=== PATIENT | male | born 1985 | race Caucasian/White ===

== ENCOUNTER → 2017-04-02 | Outpatient (CLI) | payer OTHER ==
--- NOTE | 2017-04-02 10:00 | KCIC ---
MR of the left pectoralis major muscle. HISTORY: Pain at the pectoralis major insertion after an injury 6 or 7 weeks ago. TECHNIQUE: Routine multiplanar sequences are obtained orthogonal to the left pectoralis muscles. FINDINGS: There is a high-grade tear of the pectoralis major tendon from the humeral attachment. There is at least 2 cm of retraction suspected. Mild edema at the myotendinous junction. No evidence of intramuscular tear or hematoma. There is no evidence of a bone lesion. No acute fracture. IMPRESSION: Findings are compatible with a high-grade tear of the pectoralis major tendon from its humeral insertion with mild retraction. Electronically signed by: Mehran Harry MD (04/02/2017 9:57 AM) [facility]
== END | disposition home or self-care (01) ==
LOC: KCIC MRI 07:29
PROVIDERS: ATTEND Physician Assistant
DX: S49.82XD Other specified injuries of left shoulder and upper arm, subsequent encounter (principal); S46.812D Strain of other muscles, fascia and tendons at shoulder and upper arm level, left arm, subsequent encounter; X58.XXXD Exposure to other specified factors, subsequent encounter
CPT/HCPCS: 71550